=== PATIENT | female | born 1980 | race Caucasian/White ===

== ENCOUNTER 2017-12-17 12:59 | Emergency (ER) | payer OTHER ==
[~2017-12-17] VITALS: Ht 162.6 cm; Wt 146.0 kg
[2017-12-17 13:03] VITALS: BP 178/92; PULSE 81; RESP 18; TEMP 99; O2SAT 97
[2017-12-17] MEDS ORDERED: HYDR25TA5 PO (13:27)
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
[2017-12-17] MEDS ORDERED: KETOROLAC TROMETHAMINE 60 MG/2 ML (IM) VIAL IM ONE (14:45)
[2017-12-17] MEDS ORDERED: ORPHENADRINE INJ 60 MG/2 ML AMP IM ONE (14:45)
[2017-12-17] MEDS ORDERED: IBUP1TAB7 PO (15:29)
[2017-12-17] MEDS ORDERED: ROBA500T PO (15:29)
[2017-12-17] MEDS ORDERED: ONDANSETRON ODT 4 MG TAB PO ONE (15:30)
== END 2017-12-17 15:45 | disposition home or self-care (01) ==
LOC: PHED 12:59 → PHEFT 15:45
DX: S13.4XXA Sprain of ligaments of cervical spine, initial encounter (principal); S39.012A Strain of muscle, fascia and tendon of lower back, initial encounter; M62.830 Muscle spasm of back; I10 Essential (primary) hypertension; G47.30 Sleep apnea, unspecified; J45.909 Unspecified asthma, uncomplicated; V43.52XA Car driver injured in collision with other type car in traffic accident, initial encounter; Z79.899 Other long term (current) drug therapy
CPT/HCPCS: 96372; 99283; J1885; J2360